=== PATIENT | female | born 1970 | race Caucasian/White ===

== ENCOUNTER 2018-01-11 11:42 | Emergency (ER) | payer OTHER ==
[~2018-01-11] VITALS: Ht 177.8 cm; Wt 102.0 kg
[2018-01-11] MEDS ORDERED: ASPIRIN 81 MG TABLET CHEW PO ONE (12:30)
[2018-01-11] MEDS ORDERED: DIPH,PERTUSS(ACELL),TET VAC/PF 0.5 ML IM-VACC ONE ×2 (12:30→14:31)
[2018-01-11 12:55] LABS: BASOPHILS # (AUTO) 0.04 x10^3/uL (0-0.1); BASOPHILS % (AUTO) 1 % (0-1); EOSINOPHILS # (AUTO) 0.27 x10^3/uL (0-0.4); EOSINOPHILS % (AUTO) 4 % (1-7); LYMPHOCYTES # (AUTO) 2.54 x10^3/uL (1-3.4); LYMPHOCYTES % (AUTO) 35 % (22-44); MD NO; MEAN CORPUSCULAR HEMOGLOBIN 30.1 pg (27.0-34.8); MEAN CORPUSCULAR HGB CONC 33.7 g/dL (32.4-35.8); MEAN CORPUSCULAR VOLUME 89.2 fL (80-100); MEAN PLATELET VOLUME 8.9 fL (7.4-10.4); MONOCYTES # (AUTO) 0.54 x10^3/uL (0.2-0.8); MONOCYTES % (AUTO) 8 % (2-9); NEUTROPHILS # (AUTO) 3.89 x10^3/uL (1.8-6.8); NEUTROPHILS % (AUTO) 53 % (42-75); PLATELET COUNT 202 x10^3/uL (130-400); RED BLOOD COUNT 4.06 x10^6/uL (3.82-5.3); RED CELL DISTRIBUTION WIDTH 13.6 % (9.6-15.2)
[2018-01-11 13:05] LABS: ALBUMIN 2.9 g/dL (3.4-5.0); ANION GAP 5 mmol/L (5-15); CALCIUM 7.9 mg/dL (8.5-10.1); CHLORIDE 108 mmol/L (98-107); CREATININE 0.95 mg/dL (0.55-1.02)
[2018-01-11 13:09] LABS: TROPONIN I < 0.015 ng/mL (0.000-0.045)
[2018-01-11 13:23] VITALS: BP 135/91
[2018-01-11] MEDS ORDERED: RABIES IMMUNE GLOBULIN/PF 150 UNITS/ML, 2ML IM ONE (14:00)
[2018-01-11] MEDS ORDERED: RABIES VACCINE /PF 2.5 UNITS IM-VACC ONE (14:00)
[2018-01-11] MEDS ORDERED: BACITRACIN ZINC OINT 500U/GM, 0.9 GM ONE (14:30)
== END 2018-01-11 14:57 | disposition home or self-care (01) ==
LOC: ED 14:48
DX: S70.371A Other superficial bite of right thigh, initial encounter (principal); I25.2 Old myocardial infarction; Z88.2 Allergy status to sulfonamides; Z88.8 Allergy status to other drugs, medicaments and biological substances; W54.0XXA Bitten by dog, initial encounter; Y93.89 Activity, other specified; Y92.89 Other specified places as the place of occurrence of the external cause; Y99.8 Other external cause status
CPT/HCPCS: 36415; 71045; 80048; 82040; 84484; 85025; 90471; 90715; 93005

== ENCOUNTER 2018-04-22 16:18 | Emergency (ER) | payer OTHER, MEDICAID ==
[~2018-04-22] VITALS: Ht 175.3 cm; Wt 107.5 kg
[2018-04-22 16:27] VITALS: BP 113/76
[2018-04-22] MEDS ORDERED: DIAZEPAM 5 MG TABLET ONE (16:45)
[2018-04-22] MEDS ORDERED: KETOROLAC 30 MG/1 ML ONE (16:45)
[2018-04-22] MEDS ORDERED: DIAZEPAM 5 MG TABLET PO ONE (17:00)
[2018-04-22] MEDS ORDERED: KETOROLAC 30 MG/1 ML IM ONE (17:00)
== END 2018-04-22 17:44 | disposition home or self-care (01) ==
LOC: ED 17:38
DX: S60.470A Other superficial bite of right index finger, initial encounter (principal); M54.5 Low back pain; I25.2 Old myocardial infarction; G89.29 Other chronic pain; F43.10 Post-traumatic stress disorder, unspecified; Z88.8 Allergy status to other drugs, medicaments and biological substances; W54.0XXA Bitten by dog, initial encounter; Y93.89 Activity, other specified; Y92.009 Unspecified place in unspecified non-institutional (private) residence as the place of occurrence of the external cause; Y99.8 Other external cause status
CPT/HCPCS: 73130; 96372; 99283; J1885